=== PATIENT | female | born 1960 | race Caucasian/White ===

== ENCOUNTER 2021-08-23 13:33 | Outpatient (CLI) | payer BC | END 2021-08-23 13:34 | disposition home or self-care (01) | LOC: CSHULT 13:33 | PROVIDERS: ATTEND Otolaryngology Plastic Surgery within the Head & Neck | DX: E04.0 Nontoxic diffuse goiter (principal); E04.1 Nontoxic single thyroid nodule | CPT/HCPCS: 76536 ==

== ENCOUNTER 2022-04-21 11:32 | Outpatient (CLI) | payer BC | END 2022-04-21 11:33 | disposition home or self-care (01) | LOC: CSHLAB 11:32 | PROVIDERS: ATTEND Internal Medicine Gastroenterology | DX: Z20.822 Contact with and (suspected) exposure to COVID-19 (principal); Z12.11 Encounter for screening for malignant neoplasm of colon | CPT/HCPCS: 87811 ==

== ENCOUNTER 2022-04-24 09:03 | Day surgery (SDC) | payer BC ==
[2022-04-23 11:24] VITALS: BMI 28.8
[2022-04-24] MEDS ORDERED: Lidocaine 1% MPF 2 ML VIAL ONE (10:04)
[2022-04-24] MEDS ORDERED: PROPOFOL 40 ML ONE (10:18)
[2022-04-24] MEDS ORDERED: PROPOFOL 20 ML ONE (10:45)
== END 2022-04-24 11:23 | disposition home or self-care (01) ==
LOC: CSHSDC 09:03
PROVIDERS: ATTEND Internal Medicine Gastroenterology
PROC: 0DBN8ZZ Excision of Sigmoid Colon, Via Natural or Artificial Opening Endoscopic (ICD-10-PCS; principal; 2022-04-24)
PROC: 0DBK8ZZ Excision of Ascending Colon, Via Natural or Artificial Opening Endoscopic (ICD-10-PCS; principal; 2022-04-24)
PROC: 0DBL8ZZ Excision of Transverse Colon, Via Natural or Artificial Opening Endoscopic (ICD-10-PCS; principal; 2022-04-24)
DX: D12.3 Benign neoplasm of transverse colon (principal); K58.0 Irritable bowel syndrome with diarrhea; K64.9 Unspecified hemorrhoids; K21.9 Gastro-esophageal reflux disease without esophagitis; I10 Essential (primary) hypertension; Z20.822 Contact with and (suspected) exposure to COVID-19; F32.A Depression, unspecified; F41.9 Anxiety disorder, unspecified; E03.9 Hypothyroidism, unspecified
CPT/HCPCS: 88305; J2704

== ENCOUNTER 2023-03-02 09:44 | Outpatient (CLI) | payer BC | END 2023-03-02 09:45 | disposition home or self-care (01) | LOC: CSHMAMMO 09:44 | PROVIDERS: ATTEND Family Medicine | DX: Z12.31 Encounter for screening mammogram for malignant neoplasm of breast (principal) | CPT/HCPCS: 77063; 77067 ==

== ENCOUNTER 2023-06-18 11:16 | Outpatient (CLI) | payer BC | END 2023-06-18 11:17 | disposition home or self-care (01) | LOC: CSHRAD 11:16 | PROVIDERS: ATTEND Psychiatry & Neurology Neurology | DX: M25.552 Pain in left hip (principal) ==

== ENCOUNTER 2023-11-01 12:25 | Emergency (ER) | payer BC, SELFPAY ==
[2023-11-01] MEDS ORDERED: Meclizine HCl 25 MG TAB ONE (13:21)
== END 2023-11-01 14:09 | disposition home or self-care (01) ==
LOC: CSHERS 12:25
DX: H81.399 Other peripheral vertigo, unspecified ear (principal); I10 Essential (primary) hypertension; E03.9 Hypothyroidism, unspecified; Z79.899 Other long term (current) drug therapy; Z79.82 Long term (current) use of aspirin
CPT/HCPCS: 99283

== ENCOUNTER 2024-06-13 10:40 | Emergency (ER) | payer BC | END 2024-06-13 12:08 | disposition home or self-care (01) | LOC: CSHERS 10:40 | DX: E03.8 Other specified hypothyroidism (principal); Z00.00 Encounter for general adult medical examination without abnormal findings; I10 Essential (primary) hypertension | CPT/HCPCS: 99283 ==

== ENCOUNTER 2025-05-01 13:55 | Outpatient (CLI) | payer BC | END 2025-05-01 13:56 | disposition home or self-care (01) | LOC: CSHMAMMO 13:55 | PROVIDERS: ATTEND Nurse Practitioner Family | DX: Z12.31 Encounter for screening mammogram for malignant neoplasm of breast (principal) | CPT/HCPCS: 77063; 77067 ==

== ENCOUNTER 2025-05-12 03:12 | Emergency (ER) | payer BC ==
[2025-05-12] MEDS ORDERED: HYDROcodone/Acetaminophen 10/325 mg Tablet ONE (03:32)
[2025-05-12] MEDS ORDERED: CIPRO L EAR SCH (04:00)
== END 2025-05-12 04:20 | disposition home or self-care (01) ==
LOC: CSHERS 03:12
DX: H92.02 Otalgia, left ear (principal); I10 Essential (primary) hypertension
CPT/HCPCS: 99282